=== PATIENT | female | born 1985 ===

== ENCOUNTER 2021-01-30 10:10 | Emergency (ER) | payer MEDICAID ==
[2021-01-30 10:28] VITALS: BP 128/89
[2021-01-30 11:33] LABS: Bilirubin,Urine NEG (Negative); Blood,Urine NEG (Negative); Color,Urine Yellow (Yellow); Hyaline Casts,Urine 1 /LPF; Mucus,Urine FEW /HPF; Protein,Urine <15 mg/dL mg/dL (Negative); Urobilinogen,Urine < 2.0 mg/dL (<2.0)
[2021-01-30 11:42] LABS: HCG Qualitative,Urine Negative (Negative)
--- NOTE | 2021-01-30 12:06 | Emergency Department Report ---
ED Back Pain/Injury HPI - General Chief Complaint: Back Pain/Injury Stated Complaint: LOWER BACK PAIN Time Seen by Provider: 01/30/21 11:43 Source: patient Limitations: No Limitations - History of Present Illness Initial Comments: Patient is a 35-year-old female presents emergency room with complaints of lower back pain that began 2 days ago. She denies any fall or injury. she denies any fever, chills, body aches, nausea, vomiting, diarrhea, abdominal pain, chest pain, shortness of breath, numbness, weakness, bowel or bladder incontinence, saddle numbness. She reports that she has a history of a small pulmonary nodule which she reports is not cancerous and they are currently observing. She has an allergy to acetaminophen, codeine, ibuprofen, tramadol. She denies any history of cancer, steroid use, IV drug use. - Related Data Previous Rx's Medication Instructions Recorded Last Taken Type cephALEXin [Keflex] 500 mg PO BID 7 Days #14 capsule 01/30/21 Unknown Rx methOCARBAMOL [Robaxin TAB] 500 mg PO BID PRN #20 tab 01/30/21 Unknown Rx Allergies Allergy/AdvReac Type Severity Reaction Status Date / Time acetaminophen Allergy Hives Verified 01/30/21 10:23 [From Tylenol-Codeine #3] codeine Allergy Hives Verified 01/30/21 10:23 [From Tylenol-Codeine #3] ibuprofen [From Motrin] Allergy Hives Verified 01/30/21 10:23 tramadol Allergy Hives Verified 01/30/21 10:23 ED Review of Systems ROS: Stated complaint: LOWER BACK PAIN Other details as noted in HPI Comment: All other systems reviewed and negative ED Past Medical Hx - Past Medical History Additional medical history: SPOT ON LUNG/ HEART PROBLEM - Surgical History Additional Surgical History: D&C - Social History Smoking Status: Current Every Day Smoker Substance Use Type: None - Medications Home Medications: Home Medications Medication Instructions Recorded Confirmed Last Taken Type cephALEXin [Keflex] 500 mg PO BID 7 Days #14 capsule 01/30/21 Unknown Rx methOCARBAMOL [Robaxin TAB] 500 mg PO BID PRN #20 tab 01/30/21 Unknown Rx ED Physical Exam - General Limitations: No Limitations General appearance: alert, in no apparent distress - Head Head exam: Present: atraumatic, normocephalic - Eye Eye exam: Present: normal appearance - ENT ENT exam: Present: mucous membranes moist - Neck Neck exam: Present: normal inspection, full ROM. Absent: tenderness, meningismus - Respiratory Respiratory exam: Present: normal lung sounds bilaterally. Absent: respiratory distress, wheezes, rales, rhonchi, stridor, chest wall tenderness, accessory muscle use, decreased breath sounds, prolonged expiratory - Cardiovascular Cardiovascular Exam: Present: regular rate, normal rhythm, normal heart sounds. Absent: systolic murmur, diastolic murmur, rubs, gallop - Back Exam Back exam: Present: normal inspection, full ROM, paraspinal tenderness ( bilateral lumbar paraspinal muscular ttp, no midline C-spine, T-spine or L-spine ttp, no step offs, no deformities ). Absent: vertebral tenderness - Neurological Exam Neurological exam: Present: alert, oriented X3, CN II-XII intact, normal gait. Absent: motor sensory deficit - Psychiatric Psychiatric exam: Present: normal affect, normal mood - Skin Skin exam: Present: warm, dry, intact ED Course Vital Signs 01/30/21 10:27 Temperature 99.1 F Pulse Rate 67 Respiratory 20 Rate Blood Pressure 128/89 O2 Sat by Pulse 100 Oximetry ED Medical Decision Making - Lab Data Lab Results 01/30/21 Range/Units 10:31 Urine Color Yellow (Yellow) Urine Turbidity Slightly-cloudy (Clear) Urine pH 7.0 (5.0-7.0) Ur Specific Irene 1.017 (1.003-1.030) Urine Protein <15 mg/dl (Negative) mg/dL Urine Glucose (UA) Neg (Negative) mg/dL Urine Ketones Neg (Negative) mg/dL Urine Blood Neg (Negative) Urine Nitrite Neg (Negative) Urine Bilirubin Neg (Negative) Urine Urobilinogen < 2.0 (<2.0) mg/dL Ur Leukocyte Esterase Tr (Negative) Urine WBC (Auto) 8.0 H (0.0-6.0) /HPF Urine RBC (Auto) 5.0 (0.0-6.0) /HPF U Epithel Cells (Auto) 7.0 (0-13.0) /HPF Hyaline Casts 1 /LPF Urine Mucus Few /HPF Urine HCG, Qual Negative (Negative) - Medical Decision Making Patient is a 35-year-old female presents emergency room with complaints of lower back pain that began 2 days ago. She denies any fall or injury. she denies any fever, chills, body aches, nausea, vomiting, diarrhea, abdominal pain, chest pain, shortness of breath, numbness, weakness, bowel or bladder incontinence, saddle numbness. She reports that she has a history of a small pulmonary nodule which she reports is not cancerous and they are currently observing. She has an allergy to acetaminophen, codeine, ibuprofen, tramadol. She denies any history of cancer, steroid use, IV drug use. Vitals are normal. On exam:bilateral lumbar paraspinal muscular ttp, no midline C-spine, T-spine or L-spine ttp, no step offs, no deformities, no CVA tenderness. UA shows evidence of mild UTI. Discussed all results with patient and answer questions, patient given prescription for medications. No red flag warning signs of back pain, no trauma, no unexplained weight loss, no neuro deficits, no saddle numbness, no fever, no IV drug use, no steroid use, no history of cancer. advised pt Please take medication as prescribed. Increase your fluid intake. Do not drive or operate machinery while taking muscle relaxer Robaxin. May use ice pack, heating pad, rest, epsom salt bath. Follow-up with a primary care doctor for reexamination. Return to emergency room for any new or worsening symptoms. Critical care attestation.: If time is entered above; I have spent that time in minutes in the direct care of this critically ill patient, excluding procedure time. ED Disposition Clinical Impression: Low back pain Qualifiers: Chronicity: acute Back pain laterality: bilateral Sciatica presence: without sciatica Qualified Code(s): M54.5 - Low back pain UTI (urinary tract infection) Qualifiers: Urinary tract infection type: acute cystitis Hematuria presence: without hematuria Qualified Code(s): N30.00 - Acute cystitis without hematuria Disposition: HOME / SELF CARE / HOMELESS Is pt being admited?: No Does the pt Need Aspirin: No Condition: Stable Instructions: Acute Back Pain, Adult, Urinary Tract Infection, Adult, [id number] Additional Instructions: Please take medication as prescribed. Increase your fluid intake. Do not drive or operate machinery while taking muscle relaxer Robaxin. May use ice pack, heating pad, rest, epsom salt bath. Follow-up with a primary care doctor for reexamination. Return to emergency room for any new or worsening symptoms. Prescriptions: cephALEXin [Keflex] 500 mg PO BID 7 Days #14 capsule methOCARBAMOL [Robaxin TAB] 500 mg PO BID PRN #20 tab PRN Reason: muscle spasm/pain Referrals: DARIUS MIRANDA MD [Staff Physician] - 3-5 Days [facility] [Provider Group] - 3-5 Days Time of Disposition: 12:05 Print Language: YORUBA
[2021-01-30] MEDS ORDERED: NALOXONE 0.4 MG/1 ML INJ ONE (20:59)
== END 2021-01-31 01:37 | disposition home or self-care (01) ==
LOC: ED 10:10
DX: M54.5 Low back pain (principal); N39.0 Urinary tract infection, site not specified; Z98.890 Other specified postprocedural states; F17.200 Nicotine dependence, unspecified, uncomplicated; Z88.5 Allergy status to narcotic agent; Z88.6 Allergy status to analgesic agent
CPT/HCPCS: 81001; 81025; 87086; 99283; J2310

== ENCOUNTER 2021-02-16 18:03 | Emergency (ER) | payer MEDICAID ==
[2021-02-16 18:21] VITALS: BP 131/75
--- NOTE | 2021-02-16 19:15 | Emergency Department Report ---
ED General Adult HPI - General Chief complaint: Upper Respiratory Infection Stated complaint: CHEST DISCOMFORT PUI?: Yes Time Seen by Provider: 02/16/21 19:14 Source: patient Mode of arrival: Ambulatory Limitations: No Limitations - History of Present Illness Initial comments: CC: It hurts in my lung area HPI: THIs is a 35 yo female with hx of tobacco dependence "pain in my lungs and heart" for over 2 weeks. Ms. Hamm had similar symptoms when evaluated in the emergency department on January 30. She was given cephalexin and methocarbamol. She has history of lung issues and irregular heartbeat in her family. She denies headache, fever. She lives with her girlfriend. No other known sick contacts. She is unemployed on full disability. She has discomfort when she lays flat. She denies leg pain recent travel. She is not vaccinated against COVID-19. -: Gradual, week(s) (2 to 3 weeks) Location: chest Quality: aching Consistency: constant Improves with: other (Sitting upright) Worsens with: other (Laying flat) - Related Data Previous Rx's Medication Instructions Recorded Last Taken Type cephALEXin [Keflex] 500 mg PO BID 7 Days #14 capsule 01/30/21 Unknown Rx methOCARBAMOL [Robaxin TAB] 500 mg PO BID PRN #20 tab 01/30/21 Unknown Rx Azithromycin [Zithromax Z-CORNEL] 250 mg PO DAILY #6 tablet 02/16/21 Unknown Rx predniSONE [Deltasone] 3 tab PO QDAY 3 Days #9 tab 02/16/21 Unknown Rx Allergies Allergy/AdvReac Type Severity Reaction Status Date / Time acetaminophen Allergy Hives Verified 01/30/21 10:23 [From Tylenol-Codeine #3] codeine Allergy Hives Verified 01/30/21 10:23 [From Tylenol-Codeine #3] ibuprofen [From Motrin] Allergy Hives Verified 01/30/21 10:23 tramadol Allergy Hives Verified 01/30/21 10:23 ED Review of Systems ROS: Stated complaint: CHEST DISCOMFORT Other details as noted in HPI Comment: All other systems reviewed and negative Constitutional: denies: chills, fever, malaise Respiratory: shortness of breath, wheezing Cardiovascular: chest pain Gastrointestinal: denies: abdominal pain, nausea, vomiting ED Past Medical Hx - Past Medical History Previous Medical History?: Yes Additional medical history: SPOT ON LUNG/ HEART PROBLEM - Surgical History Past Surgical History?: Yes Additional Surgical History: D&C - Family History Family history: other (Cardiac disease) - Social History Smoking Status: Current Every Day Smoker Substance Use Type: Alcohol - Medications Home Medications: Home Medications Medication Instructions Recorded Confirmed Last Taken Type cephALEXin [Keflex] 500 mg PO BID 7 Days #14 capsule 01/30/21 Unknown Rx methOCARBAMOL [Robaxin TAB] 500 mg PO BID PRN #20 tab 01/30/21 Unknown Rx Azithromycin [Zithromax Z-CORNEL] 250 mg PO DAILY #6 tablet 02/16/21 Unknown Rx predniSONE [Deltasone] 3 tab PO QDAY 3 Days #9 tab 02/16/21 Unknown Rx ED Physical Exam - General Limitations: No Limitations General appearance: alert, in no apparent distress, other (Pleasant nontoxic steady gait appears comfortable) - Head Head exam: Present: atraumatic, normocephalic - Eye Eye exam: Present: normal appearance - ENT ENT exam: Present: mucous membranes moist - Neck Neck exam: Present: normal inspection, full ROM - Respiratory Respiratory exam: Present: normal lung sounds bilaterally. Absent: respiratory distress, wheezes, rales, rhonchi - Cardiovascular Cardiovascular Exam: Present: regular rate, normal rhythm, normal heart sounds. Absent: systolic murmur, diastolic murmur, rubs, gallop - GI/Abdominal GI/Abdominal exam: Present: soft, normal bowel sounds. Absent: distended, tenderness, guarding, rebound - Extremities Exam Extremities exam: Present: normal inspection - Neurological Exam Neurological exam: Present: alert, oriented X3 - Psychiatric Psychiatric exam: Present: normal affect, normal mood - Skin Skin exam: Present: warm, dry, intact, normal color. Absent: rash ED Course Vital Signs 02/16/21 18:19 Temperature 98.9 F Pulse Rate 89 Respiratory 18 Rate Blood Pressure 131/75 O2 Sat by Pulse 97 Oximetry ED Medical Decision Making - Medical Decision Making Clinical impression: Acute bronchitis, due to persistent symptoms and tobacco dependence, antibiotics are indicated. Prescribed azithromycin and prednisone. Differential diagnosis includes costochondritis, pleurisy, pericarditis. Patient appears well. She understands return precautions. I recommended COVID- 19 testing. Provided referral to internal medicine physician. Critical care attestation.: If time is entered above; I have spent that time in minutes in the direct care of this critically ill patient, excluding procedure time. ED Disposition Clinical Impression: Acute bronchitis Disposition: 01 HOME / SELF CARE / HOMELESS Is pt being admited?: No Does the pt Need Aspirin: No Condition: Stable Instructions: Acute Bronchitis, Adult, Acute Bronchitis (ED) Prescriptions: predniSONE [Deltasone] 3 tab PO QDAY 3 Days #9 tab Azithromycin [Zithromax Z-CORNEL] 250 mg PO DAILY #6 tablet Referrals: DARIUS MIRANDA MD [Staff Physician] - 3-5 Days
[2021-02-17] MEDS ORDERED: DEXTROSE 50% IN WATER (25GM) 50 ML SYRINGE IV ONE (08:16)
[2021-02-17] MEDS ORDERED: SODIUM CHLORIDE 0.9% 1000 ML 0 ML ONE (08:19)
== END 2021-02-17 15:34 | disposition home or self-care (01) ==
LOC: ED 18:03
DX: J20.9 Acute bronchitis, unspecified (principal); Z98.890 Other specified postprocedural states; F17.200 Nicotine dependence, unspecified, uncomplicated; Z88.5 Allergy status to narcotic agent; Z88.6 Allergy status to analgesic agent
CPT/HCPCS: 99281; J7030

== ENCOUNTER 2021-07-16 09:48 | Emergency (ER) | payer MEDICAID ==
--- NOTE | 2021-07-16 12:08 | Emergency Department Report ---
ED General Adult HPI - General Chief complaint: Chest Pain Stated complaint: CT ON LUNG,HEART PROBLEMS Time Seen by Provider: 07/16/21 11:55 Source: patient Mode of arrival: Ambulatory Limitations: No Limitations - History of Present Illness Initial comments: Patient presents with chest pain shortness of breath. For the last 2 years she has had chest pain or shortness of breath. Is progressively worsened. She had been seen at a clinic in [facility]. She had been admitted. She was told that she had some sort of heart issue. She was told that she "had a spot on her lung." She had been seen by cardiology and pulmonary. She has been living in this area for 2 years and has not had any follow-up. Today she got very scared. She was having more trouble breathing than usual. The shortness of breath was both at rest and with exertion. She states that she just has to take deep breaths to catch her breath. She is having chest pain. Is described as aching. She states that sometimes she has to "bend over and clutch her chest to make it go away." The chest pain is not exertional. There is no history of recent travel or trauma. She has had no vomiting or diarrhea. There is no hematemesis or hemoptysis. She admits that she had an appointment to see somebody earlier today but did not make it. - Related Data Previous Rx's Medication Instructions Recorded Last Taken Type Lidocaine [Lidoderm] 1 each TP DAILY #30 patch 07/16/21 Unknown Rx Metaxalone [Skelaxin] 800 mg PO TID #9 tablet 07/16/21 Unknown Rx Allergies Allergy/AdvReac Type Severity Reaction Status Date / Time acetaminophen Allergy Hives Verified 07/16/21 10:15 [From Tylenol-Codeine #3] codeine Allergy Hives Verified 07/16/21 10:15 [From Tylenol-Codeine #3] ibuprofen [From Motrin] Allergy Hives Verified 07/16/21 10:15 tramadol Allergy Hives Verified 07/16/21 10:15 ED Review of Systems ROS: Stated complaint: CT ON LUNG,HEART PROBLEMS Other details as noted in HPI Comment: All other systems reviewed and negative Constitutional: denies: fever Eyes: denies: eye pain ENT: denies: throat pain Respiratory: denies: cough Cardiovascular: as per HPI Endocrine: denies: unexplained weight loss Gastrointestinal: denies: abdominal pain Genitourinary: abnormal menses (She does state that her last period was normal. She has had continued bleeding despite that.). denies: dysuria Musculoskeletal: denies: back pain Skin: denies: rash Neurological: denies: headache Hematological/Lymphatic: denies: easy bruising ED Past Medical Hx - Past Medical History Additional medical history: SPOT ON LUNG/ HEART PROBLEM - Surgical History Additional Surgical History: D&C - Family History Family history: other (Maternal parent and grandparent with congestive heart failure) - Social History Smoking Status: Current Every Day Smoker (We discussed tobacco cessation x3 minutes) Substance Use Type: Alcohol - Medications Home Medications: Home Medications Medication Instructions Recorded Confirmed Last Taken Type Lidocaine [Lidoderm] 1 each TP DAILY #30 patch 07/16/21 Unknown Rx Metaxalone [Skelaxin] 800 mg PO TID #9 tablet 07/16/21 Unknown Rx ED Physical Exam - General Limitations: No Limitations, Other (Pulse ox noted and normal) General appearance: alert, in no apparent distress - Head Head exam: Present: atraumatic, normocephalic - Eye Eye exam: Present: normal appearance, EOMI. Absent: scleral icterus - ENT ENT exam: Present: normal orophraynx, normal external ear exam - Neck Neck exam: Present: normal inspection. Absent: meningismus - Respiratory Respiratory exam: Present: normal lung sounds bilaterally, other (She is able to speak in complete sentences without pause). Absent: respiratory distress - Cardiovascular Cardiovascular Exam: Present: regular rate, normal rhythm - GI/Abdominal GI/Abdominal exam: Present: soft. Absent: distended - Extremities Exam Extremities exam: Present: normal capillary refill. Absent: calf tenderness - Back Exam Back exam: Absent: CVA tenderness (R), CVA tenderness (L) - Neurological Exam Neurological exam: Present: alert, oriented X3, CN II-XII intact, normal gait. Absent: motor sensory deficit - Psychiatric Psychiatric exam: Present: normal affect, normal mood - Skin Skin exam: Present: warm, dry ED Course Vital Signs 07/16/21 07/16/21 10:05 13:30 Temperature 98 F 98.1 F Pulse Rate 83 70 Respiratory 14 14 Rate Blood Pressure 139/72 121/82 [Left] O2 Sat by Pulse 100 100 Oximetry - Reevaluation(s) Reevaluation #1: 07/16/21 12:07 EKG and chest x-ray were ordered. Old records reviewed. Reevaluation #2: 07/16/21 13:40 Chest x-ray was noted. Patient was subsequently discharged. ED Medical Decision Making - Lab Data Result diagrams: 07/16/21 12:12 - EKG Data When compared to previous EKG there are: no significant change 07/16/21 13:41 EKG shows normal sinus rhythm with normal intervals. There is no ectopy. QRS and QT corrected were normal. Patient has no ST elevation to suggest STEMI or infarct and there is no ST depression suggestive of ischemia. Our system does not have old EKG for comparison. - Radiology Data Radiology results: report reviewed - Medical Decision Making Patient presents with ongoing and subacute to chronic chest pain as well as left shoulder pain. I do believe that her symptoms are more musculoskeletal and neuropathic at this time. 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 She certainly does not have symptoms suggestive of ACS. She admits that she had a catheterization done in April that was clean to look at her heart. I am not concerned that this represents ACS. She certainly does not have symptoms that would be concerning for pneumonia or pneumothorax. There is no pulse deficit suggest aortic dissection. This is not pleuritic. I am not concerned for PE. Critical Care Time: No Critical care attestation.: If time is entered above; I have spent that time in minutes in the direct care of this critically ill patient, excluding procedure time. ED Disposition Clinical Impression: Shortness of breath Chest pain Qualifiers: Chest pain type: unspecified Qualified Code(s): R07.9 - Chest pain, unspecified Disposition: 01 HOME / SELF CARE / HOMELESS Is pt being admited?: No Condition: Stable Instructions: Nonspecific Chest Pain, Adult, Shortness of Breath, Adult, [id number] Additional Instructions: Drink plenty water. Continue home medication. Return for problems. Follow-up with your regular doctor for recheck. Follow-up with the referral physicians as prescribed and written. Prescriptions: Lidocaine [Lidoderm] 1 each TP DAILY #30 patch Metaxalone [Skelaxin] 800 mg PO TID #9 tablet Referrals: CAROLINE SANTOS MD [Primary Care Provider] - 3-5 Days ANUJ ACEVEDO MD [Staff Physician] - 3-5 Days SERG SEARS [Staff Physician] - 3-5 Days
[2021-07-16 12:57] LABS: Blood Urea Nitrogen 5 mg/dL (7-17); Calcium 9.2 mg/dL (8.4-10.2); Hemolysis Index 9
[2021-07-16 13:03] LABS: BUN/Creatinine Ratio 10
[2021-07-16 13:31] VITALS: BP 121/82
--- NOTE | 2021-07-16 13:33 | XRay Report ---
CHEST 2 VIEWS INDICATION / CLINICAL INFORMATION: Dyspnea. COMPARISON: None available. FINDINGS: SUPPORT DEVICES: None. HEART / MEDIASTINUM: The heart size and pulmonary vasculature are normal. LUNGS / PLEURA: No significant pulmonary or pleural abnormality. No pneumothorax. ADDITIONAL FINDINGS: There are bilateral nipple piercings. IMPRESSION: No acute findings. Signer Name: Cole Curran MD Signed: 07/16/2021 1:28 PM Workstation Name: [id number]
--- NOTE | 2021-07-17 08:50 | Electrocardiograph Report ---
[facility] Test Date: 2021-07-16 Test Time: 14:02:24 Pat Name: EMELIA PENA Department: Room: Gender: F Blood Bank Technologist: JOSEFINA : 1985 Requested By: LUDMILA BROWNLEE Order Number: [id number] Reading MD: eH Hurley Measurements Intervals [place] Rate: 74 P: 118 DC: 166 QRS: 153 QRSD: 85 T: 157 QT: 374 QTc: 415 Interpretive Statements Right and left arm electrode reversal, interpretation assumes no reversal Sinus rhythm RSR' IN V1 OR V2, PROBABLY NORMAL VARIANT No previous ECG available for comparison Electronically Signed On 07-17-2021 8:49:25 EST by He Hurley
== END 2021-07-16 14:15 | disposition home or self-care (01) ==
LOC: ED 09:48
DX: R06.02 Shortness of breath (principal); R07.9 Chest pain, unspecified; F17.200 Nicotine dependence, unspecified, uncomplicated; F10.20 Alcohol dependence, uncomplicated; Z88.5 Allergy status to narcotic agent; Z88.6 Allergy status to analgesic agent
CPT/HCPCS: 36415; 71046; 80048; 84703; 93005; 93010; 99283